=== PATIENT | male | born 1970 | race African-American/Black ===

== ENCOUNTER 2022-03-07 23:45 | Emergency (ER) | payer OTHER ==
[~2022-03-07] VITALS: Ht 172.7 cm; Wt 81.6 kg
[~2022-03-07 23:45] MED LIST: ALLEGRA-D 24 H1 EACH PO; DICLOFENAC SODI50 MG PO; SEPTRA DS TABLE1 TAB PO; TUSSI-PRES LIQ118 ML PO; ZYNCOF 20-400120 ML PO
[2022-03-08] MEDS ORDERED: ORPHENADRINE C100 MG PO (02:18)
[2022-03-08] MEDS ORDERED: DICLOFENAC POTA50 MG PO (02:18)
[2022-03-09] MEDS ORDERED: IBU600 MG PO (23:17)
[2022-03-09] MEDS ORDERED: CYCLOBENZAPRINE10 MG PO (23:17)
== END 2022-03-08 03:43 | disposition home or self-care (01) ==
LOC: ER 23:45
DX: M62.830 Muscle spasm of back (principal); M25.562 Pain in left knee

== ENCOUNTER 2022-03-09 20:37 | Emergency (ER) | payer OTHER ==
[~2022-03-09] VITALS: Ht 172.7 cm; Wt 77.1 kg
[~2022-03-09 20:37] MED LIST changes: +DICLOFENAC POTA50 MG PO; +ORPHENADRINE C100 MG PO
[2022-03-09] MEDS ORDERED: CYCLOBENZAPRINE10 MG PO (23:17)
[2022-03-09] MEDS ORDERED: IBU600 MG PO (23:17)
== END 2022-03-09 23:50 | disposition home or self-care (01) ==
LOC: ER 20:37
DX: M25.562 Pain in left knee (principal); R50.9 Fever, unspecified

== ENCOUNTER 2022-03-13 02:28 | Emergency (ER) | payer OTHER ==
[~2022-03-13] VITALS: Ht 172.7 cm; Wt 81.6 kg
[~2022-03-13 02:28] MED LIST changes: +CYCLOBENZAPRINE10 MG PO; +IBU600 MG PO
[2022-03-13] MEDS ORDERED: IBU800 MG PO (05:39)
== END 2022-03-13 05:54 | disposition home or self-care (01) ==
LOC: ER 02:28
DX: M25.562 Pain in left knee (principal)